=== PATIENT | female | born 1990 | race Asian ===

== ENCOUNTER → 2020-05-19 | Outpatient (CLI) | payer BC | END | disposition home or self-care (01) | LOC: EDBD 08:44 → RADPV 08:44 | PROVIDERS: ATTEND Family Medicine | DX: M54.5 Low back pain (principal); M25.551 Pain in right hip; M25.552 Pain in left hip | CPT/HCPCS: 72100; 73521 ==

== ENCOUNTER 2020-06-03 14:44 | Emergency (ER) | payer BC ==
[~2020-06-03] VITALS: Ht 157.5 cm; Wt 49.1 kg
[2020-06-03 14:56] VITALS: BP 144/83
== END 2020-06-03 16:35 | disposition home or self-care (01) ==
LOC: EMS 14:44
DX: S67.02XA Crushing injury of left thumb, initial encounter (principal); W23.0XXA Caught, crushed, jammed, or pinched between moving objects, initial encounter; Y93.89 Activity, other specified; Y92.89 Other specified places as the place of occurrence of the external cause; Y99.8 Other external cause status
CPT/HCPCS: 99283